=== PATIENT | female | born 1970 | race Two or more races ===

== ENCOUNTER 2023-08-03 10:55 | Emergency (ER) | payer MEDICAID, OTHER ==
[~2023-08-03] VITALS: Ht 157.5 cm; Wt 76.3 kg
[2023-08-03 12:50] VITALS: BP 110/73; PULSE 95
[2023-08-03] MEDS ORDERED: DexAMETHasone SOD PHOS 10MG/1ML VIAL INJ IM ONE (13:15)
[2023-08-03] MEDS ORDERED: ACETAMINOPHEN 500 MG TAB PO ONE (13:15)
[2023-08-03] MEDS ORDERED: ALBUTEROL SULF 2.5 MG/0.5ML(0.5%) NEB SOLN NEB ONE (13:45)
[2023-08-03] MEDS ORDERED: IPRATROPIUM BROM 0.5 MG/2.5ML INH SOL NEB ONE (13:45)
[2023-08-03 13:59] LABS: Rapid Influenza A Negative (Negative); Rapid Influenza B Negative (Negative)
[2023-08-03 14:03] LABS: COVID19 ANTIGEN SOFIA FIA NEGATIVE (NEGATIVE)
[2023-08-03 14:05] VITALS: RESP 18; O2SAT 94
[2023-08-03 14:53] VITALS: TEMP 99.8
[2023-08-03] MEDS ORDERED: ACET500T58 PO (14:56)
[2023-08-03] MEDS ORDERED: BENZ100C97 PO (14:56)
[2023-08-03] MEDS ORDERED: ALBU108A5 IN (14:56)
[2023-08-03] MEDS ORDERED: LORA10CA PO (14:56)
== END 2023-08-03 15:01 | disposition home or self-care (01) ==
LOC: ER 10:55
DX: J98.8 Other specified respiratory disorders (principal); Z88.8 Allergy status to other drugs, medicaments and biological substances; Z20.822 Contact with and (suspected) exposure to COVID-19
CPT/HCPCS: 36415; 87426; 87804; 96372; 99283; J1100; J7644